=== PATIENT | male | born 1990 | race Hispanic/Latino ===

== ENCOUNTER 2022-01-21 20:42 | Emergency (ER) | payer SELFPAY ==
--- NOTE | 2022-01-21 20:45 | ERPHSYRPT ---
- History of Present Illness Time Seen by Provider: 01/21/22 20:45 Source: patient, family Exam Limitations: language barrier Physician History: This is a 31-year-old male who presents with 2-day history of worsening right earache. Patient has not had any fevers. However the pain in the ear is worsened and there is been associated drainage of yellowish-green fluid. Timing/Duration: gradual onset Severity: moderate ENT Location: ear (R) Prearrival Treatment: no prearrival treatment Modifying Factors: Improves With: nothing Associated Symptoms: ear pain (R), ear drainage (Right ear drainage) Allergies/Adverse Reactions: No Known Drug Allergies Allergy (Unverified 01/21/22 21:04) Travel Risk - International Travel Have you traveled outside of the country in past 3 weeks: No - Coronavirus Screening Are you exhibiting any of the following symptoms?: No Close contact with a COVID-19 positive Pt in past 14-21 Days: No - Review of Systems Constitutional: No Symptoms Eyes: No Symptoms Ears, Nose, & Throat: Ear Pain (Right ear), Ear Discharge (Right) Respiratory: No Symptoms Cardiac: No Symptoms Abdominal/Gastrointestinal: No Symptoms Genitourinary Symptoms: No Symptoms Musculoskeletal: No Symptoms Skin: No Symptoms Neurological: No Symptoms Psychological: No Symptoms Endocrine: No Symptoms Hematologic/Lymphatic: No Symptoms Immunological/Allergic: No Symptoms All Other Systems: Reviewed and Negative - Past Medical History Pertinent Past Medical History: Yes - Past Surgical History Past Surgical History: Yes - Nursing Vital Signs Nursing Vital Signs: Initial Vital Signs Temperature 98.4 F 01/21/22 20:53 Pulse Rate 105 H 01/21/22 20:53 Respiratory Rate 18 01/21/22 20:53 Blood Pressure 144/88 01/21/22 20:53 O2 Sat by Pulse Oximetry 99 01/21/22 20:53 Pain Scale Pain Intensity 10 - Physical Exam General Appearance: no apparent distress, alert Eye Exam: bilateral eye: normal inspection, PERRL, EOMI Ear Exam: right ear: auricle normal, swelling, tenderness, TM red, left ear: canal normal, TM normal Nasal Exam: normal inspection Throat Exam: normal, pharynx normal, No dental tenderness Neck Exam: normal inspection, non-tender, supple, full range of motion Cardiovascular/Respiratory Exam: chest non-tender, no respiratory distress Abdominal Exam: non-tender Neurologic Exam: alert, oriented x 3, cooperative, bead maker II-XII nml as tested, normal mood/affect, nml cerebellar function, nml station & gait, sensation nml Skin Exam: normal color, warm, dry SpO2 Interpretation: normal O2 Delivery: Room Air - Course Nursing assessment & vital signs reviewed: Yes Ordered Tests: Medication Summary Discontinued Medications Generic Name Dose Route Start Last Admin Trade Name Freq PRN Reason Stop Dose Admin Hydrocodone Bitart/Acetaminophen 1 tab 01/21/22 21:30 Hydrocodone/Apap 5/325 Mg Tablet PO 01/21/22 21:31 STAT ONE Ceftriaxone Sodium 1,000 mg 01/21/22 21:31 Ceftriaxone Sodium 1000 Mg Inj Vial IM 01/21/22 21:32 STAT ONE Ibuprofen 600 mg 01/21/22 21:30 Ibuprofen 600 Mg Tablet PO 01/21/22 21:31 STAT ONE - Progress Progress: unchanged Counseled pt/family regarding: diagnosis, need for follow-up - Departure Departure Disposition: Home Clinical Impression: Right otitis media Condition: Stable Critical Care Time: No Additional Instructions: Drink plenty of fluids. Use Tylenol ibuprofen for pain and fever control. Follow-up with your primary care physician for further evaluation management. Take your antibiotics as prescribed. Prescriptions: Amoxicillin 500 mg Cap [Amoxil 500 mg] 500 mg PO TID #30 cap Amoxicillin 500 mg Cap [Amoxil 500 mg] 500 mg PO TID #30 cap
[2022-01-21] MEDS ORDERED: NORCO 5/325 MG PO ONE ×2 (21:30→21:37)
[2022-01-21] MEDS ORDERED: MOTRIN 600 MG PO ONE (21:30)
[2022-01-21] MEDS ORDERED: Rocephin 1000 MG INJ IM ONE (21:31)
[2022-01-21] MEDS ORDERED: MOTRIN 600 MG ONE (21:34)
[2022-01-21] MEDS ORDERED: NORCO 5/325 MG ONE ×2 (21:34→21:50)
[2022-01-21] MEDS ORDERED: Rocephin 1000 MG INJ ONE (21:35)
[2022-01-21] MEDS ORDERED: XYLOCAINE 1% HCL 20 ML MDV ONE (21:35)
[2022-01-21 22:02] VITALS: BP 127/89; PULSE 79; O2SAT 98
== END 2022-01-21 21:58 | disposition home or self-care (01) ==
LOC: ED 20:42
DX: H66.91 Otitis media, unspecified, right ear (principal); H92.01 Otalgia, right ear
CPT/HCPCS: 96372; 99283; J0696; A9270-GY